=== PATIENT | female | born 1970 | race American Indian/Alaskan Native ===

== ENCOUNTER 2017-01-11 01:09 | Emergency (ER) | payer OTHER, MEDICARE ==
--- NOTE | 2017-01-11 02:59 | XRay Report ---
FINAL REPORT EXAM: XR HUMERUS 2 LT HISTORY: Left humerus Pain COMPARISON: None available. FINDINGS: Three total images of the left humerus obtained. Bony structures are intact. Joint spaces are preserved. No acute fracture dislocation. IMPRESSION: No acute bony abnormality.
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
[2017-01-11] MEDS ORDERED: FLEXERIL PO ONE (04:10)
[2017-01-11 04:50] VITALS: BP 132/81
== END 2017-01-11 05:04 | disposition home or self-care (01) ==
LOC: ED 01:09
DX: M79.632 Pain in left forearm (principal); M79.1 Myalgia; G43.909 Migraine, unspecified, not intractable, without status migrainosus; Z88.6 Allergy status to analgesic agent; Z88.8 Allergy status to other drugs, medicaments and biological substances; D64.9 Anemia, unspecified; V43.52XA Car driver injured in collision with other type car in traffic accident, initial encounter; Y93.89 Activity, other specified; Y99.8 Other external cause status; Y92.488 Other paved roadways as the place of occurrence of the external cause
CPT/HCPCS: 99283